=== PATIENT | female | born 1990 | race African-American/Black ===

== ENCOUNTER 2024-12-30 18:58 | Emergency (ER) | payer BC, MEDICAID, OTHER ==
[2024-12-30] MEDS ORDERED: Lidocaine 1% (PF) 30 ML VIAL ONE (19:40)
[2024-12-30] MEDS ORDERED: Boostrix 0.5 ML (Tdap) VIAL (>/=7 yrs of age) ONE (19:40)
[2024-12-30 20:41] LABS: BHCG - Serum Negative (NEGATIVE); Pregs Control Background? CLEAR/WHITE (CLR/WHITE); Pregs Control Bar Appear? YES (CONTROL BAR)
[2024-12-30] MEDS ORDERED: Amoxicillin/Potassium Clav 875 MG TAB ONE (21:23)
[2024-12-30] MEDS ORDERED: Acetaminophen 500 MG TAB ONE (21:23)
[2025-01-01 01:00] LABS: Chlamydia by PCR, Vaginal Swab Not Detected (NotDetected); GC by PCR, Vaginal Swab Not Detected (NotDetected)
== END 2024-12-30 21:28 | disposition home or self-care (01) ==
LOC: CSHERS 18:58
DX: N75.1 Abscess of Bartholin's gland (principal); Z23 Encounter for immunization
CPT/HCPCS: 56420; 84703; 87480; 87491; 87510; 87591; 87660; 90471; 90715